=== PATIENT | male | born 2005 | race African-American/Black ===

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

== ENCOUNTER 2024-01-09 10:44 | Emergency (ER) | payer MEDICAID ==
[~2024-01-09] VITALS: Ht 180.3 cm; Wt 52.2 kg
[~2024-01-09 10:44] MED LIST: CEPH500T MT; CETI10TA11 MT; P20 MT
[2024-01-09 11:19] VITALS: O2SAT 100
[2024-01-09 12:41] LABS: CLARITY URINE CLEAR (CLEAR); COLOR URINE YELLOW (YELLOW); GLUCOSE URINE NEGATIVE (NEGATIVE); KETONES URINE NEGATIVE (NEGATIVE); LEUKOCYTE ESTERASE URINE NEGATIVE (NEGATIVE); NITRITE URINE NEGATIVE (NEGATIVE); OCCULT BLOOD URINE NEGATIVE (NEGATIVE); PH URINE 6.5 (4.5-8.0); PROTEIN URINE NEGATIVE (NEGATIVE); UROBILINOGEN URINE 0.2 E.U./dL (0.2-1.0)
[2024-01-09 13:08] VITALS: BP 106/61; PULSE 59; RESP 18; TEMP 98.7
[2024-01-11 10:11] LABS: CHLAMYDIA TRACHOMATIS NAA Negative (Negative); NEISSERIA GONORRHOEAE NAA Negative (Negative)
== END 2024-01-09 13:11 | disposition home or self-care (01) ==
LOC: ER 10:44
DX: R36.1 Hematospermia (principal)
CPT/HCPCS: 81003; 87491; 87591; 99283

== ENCOUNTER 2024-07-01 15:48 | Emergency (ER) | payer MEDICAID ==
[~2024-07-01] VITALS: Ht 180.3 cm; Wt 56.7 kg
[2024-07-01 16:11] VITALS: O2SAT 98
[2024-07-01] MEDS ORDERED: IBUP-2029 MT (17:26)
[2024-07-01 17:43] VITALS: BP 110/56; PULSE 60; RESP 16; TEMP 36.83628; O2SAT 98
== END 2024-07-01 17:44 | disposition home or self-care (01) ==
LOC: ER 15:48
DX: S83.91XA Sprain of unspecified site of right knee, initial encounter (principal); X58.XXXA Exposure to other specified factors, initial encounter; Y93.89 Activity, other specified; Y92.89 Other specified places as the place of occurrence of the external cause; Y99.8 Other external cause status
CPT/HCPCS: 73562; 99283